=== PATIENT | male | born 1970 | race Caucasian/White ===

== ENCOUNTER 2016-03-09 09:58 | Emergency (ER) | payer MEDICAID ==
[~2016-03-09] VITALS: Wt 85.0 kg
[2016-03-09 10:45] LABS: ADD UMIC YES; URINE BILIRUBIN (Dip) NEGATIVE (NEGATIVE); URINE BLOOD (Dip) TRACE (NEGATIVE); URINE COLOR LT. YELLOW (YELLOW); URINE GLUCOSE (Dip) NEGATIVE (NEGATIVE); URINE KETONES (Dip) NEGATIVE (NEGATIVE); URINE LEUKOCYTE ESTERASE (Dip) NEGATIVE (NEGATIVE); URINE NITRITE (Dip) NEGATIVE (NEGATIVE); URINE TOTAL PROTEIN (Dip) NEGATIVE (NEGATIVE); URINE UROBILINOGEN (Dip) 0.2 E.U./dL (0.1-1.0)
[2016-03-09 11:24] LABS: URINE RBCS 0-2 /HPF (0)
--- NOTE | 2016-03-09 12:43 | RADRPT ---
PROCEDURE: CT abdomen and pelvis without contrast. CLINICAL INDICATION: Abdominal pain. TECHNIQUE: CT scan of the abdomen and pelvis without contrast was performed on a multi-slice CT [facility] . Sagittal and coronal reformatted images were obtained from the axial source images. DLP 1032.4 mGycm. CTDIvol 17.0 mGy COMPARISON: None FINDINGS: The lung bases are clear. There is limited evaluation of the solid viscera from the lack of IV con trast. The kidneys are symmetric bilaterally with no evidence of renal or ureteral calculi. There is no hy dronephrosis or perinephric stranding. There is hepatomegaly and fatty infiltration of the liver with relative sparing of the fatty infiltr ation around the gallbladder fossa. There is no biliary ductal dilatation. The gallbladder is unre markable without inflammation. The spleen is unremarkable without mass. The adrenal glands are within normal limits without mass. The pancreas is unremarkable without focal lesion or surrounding inflammatory changes. There is no bowel obstruction or focal bowel inflammation. The appendix is unremarkable. There is a diffusely moderately fecal filled colon. There is no free air or free fluid. There are no enlarged lymph nodes. The aorta is unremarkable and there is no acute osseous abnormality. Degenerative facet changes are seen within the lower lumbar spine. The prostate is at the upper limits of normal in size. There are small bilateral fat containing ing uinal hernias slightly larger on the right. IMPRESSION: No evidence of renal or ureteral calculi or hydronephrosis. No evidence of bowel obstruction or inflammation. There is no appendicitis. There is a fecal fille d colon. Hepatomegaly and fatty liver. RPTAT: AA .Mely Ng MD, Date Time Electronically viewed and signed by .Mely Ng MD, MD on 03/09/2016 12:43 .J/
[2016-03-09] MEDS ORDERED: NAPR-260 PO (12:59)
--- NOTE | 2016-03-09 13:33 | ERD ---
ER Documentation Chief Complaint Date/Time DATE: 03/09/16 TIME: 13:30 Chief Complaint pelvic pain w dysurea HPI This is a 45-year-old male presenting to the emergency department complaining of bilateral pelvic pain that radiates down his thigh for the past 3 months. Patient states that the pain has worsened the past 2 days, he rates the pain as mild to moderate rating it 5 out of 10. Patient also admits to having mild pain while urination. He denies any penile discharge. He states that he is sexually active with one partner his uses condoms. He denies any hematuria. Denies any fevers. Denies taking medication ROS All systems reviewed and are negative except as per history of present illness. Medications Home Meds Active Scripts Naproxen* (Naprosyn*) 500 Mg Tablet, 500 MG PO BID Y for PAIN AND/OR INFLAMMATION, #30 TAB Prov:JEN ADAMS PA-C 03/09/16 PMhx/Soc Medical and Surgical Hx: pt denies Medical Hx, pt denies Surgical Hx Hx Alcohol Use: No Hx Substance Use: No Hx Tobacco Use: No Smoking Status: Never smoker Physical Exam Vitals Vital Signs Date Time Temp Pulse Resp B/P Pulse Ox O2 Delivery O2 Flow Rate FiO2 03/09/16 10:08 96.0 71 20 150/91 99 Physical Exam GENERAL: well-developed/well-nourished, in no apparent distress, non-toxic appearing HENT: NC/AT, moist mucous membranes EYES: Conjunctiva normal NECK: Supple, no lymphadenopathy PULM: CTA bilaterally, no rales, rhonchi, or wheezing heard CV: Normal S1S2, RRR, good capillary refill GI: Soft, non-distended, mild tender to palpation Normal bowel sounds, no masses or organomegaly felt on exam No gross peritonitis, no bruits Negative Rovsing, negative Blanco, negative McBurney's point, Negative CVAT : No testicular pain or masses felt, no erythema, no penile discharge or lesion BACK: No masses EXT: No clubbing, cyanosis, or edema NEURO: Alert and Orientated SKIN: Intact, normal turgor PSYCH: Normal mood and mentation Results 24 hrs Laboratory Tests Test 03/09/16 10:25 Urine Bilirubin NEGATIVE Urine Clarity CLEAR Urine Color LT. YELLOW Urine Glucose NEGATIVE% Urine Hemoglobin TRACE Urine Ketones NEGATIVE Urine Leukocyte Esterase NEGATIVE Urine Microscopic RBC 0-2/HPF Urine Microscopic WBC NONE SEEN/HPF Urine Nitrite NEGATIVE Urine Specific [place] <=1.005 Urine Total Protein NEGATIVE Urine Urobilinogen 0.2 E.U./dL Urine pH 6.0 Procedures/MDM This is a 45-year-old male presenting to the emergency room complaining of bilateral pelvic pain with mild dysuria, I have a low suspicion for urinary tract infection, pyelonephritis, diverticulitis or appendicitis. On examination patient appeared well, nontoxic and afebrile. There there is no evidence of erythema, swelling or tenderness in his testicles or penile region A urinalysis did not show any evidence of a urinary tract infection. A urine culture for gonorrhea and chlamydia was sent out. CT of the abdomen and pelvis was done to rule out acute abdomen, radiologist stated: No evidence of renal or ureteral calculi or hydronephrosis. No evidence of bowel obstruction or inflammation. There is no appendicitis. There is a fecal filled colon. Hepatomegaly and fatty liver. I have reassessed patient and discussed these findings with patient. I discussed the patient was found to have nonalcoholic fatty liver. I discussed to follow-up with the primary care physician and take documents with him. I discussed return to the ER for any worsening signs or symptoms. Patient understands and agrees with the plan. Prescription for naproxen was provided. He understands and agrees with this plan Departure Diagnosis: Primary Impression: Dysuria Additional Impression: Hepatomegaly Condition: Stable Patient Instructions: Dysuria, Non-Alcoholic Fatty Liver Disease (NAFLD) Referrals: [facility] Additional Instructions: Visite a [facility] john meehan para un EXAMEN.Regrese a estas instalaciones si no se mejora brielle esperbamos o brielle le dijimos. Regrese a estas instalaciones si no se mejora brielle esperbamos o brielle le dijimos. [place] toda la medicina aristeo y brielle se le indic. JEN ADAMS PA-C Mar 09, 2016 13:33
== END 2016-03-09 13:38 | disposition home or self-care (01) ==
LOC: FTE 09:58
DX: R30.0 Dysuria (principal); R16.0 Hepatomegaly, not elsewhere classified
CPT/HCPCS: 74176; 81001; 87086; 87591; Z7502; 81003